=== PATIENT | female | born 1965 | race American Indian/Alaskan Native ===

== ENCOUNTER 2021-12-22 15:49 | Inpatient (IN) | payer MEDICARE ==
[2021-12-22] MEDS ORDERED: MELATONIN 5 MG TAB PO PRN (21:34)
[2021-12-23] MEDS: traZODone 50 MG TAB PO SCH ×2 (00:10→21:55)
[2021-12-23 00:38] LABS: Basophils % (Auto) 0.6 % (0.0-1.8); Eosinophils # (Auto) 0.1 K/mm3 (0.0-0.4); Eosinophils % (Auto) 1.1 % (0.0-4.3); Hematocrit 31.7 % (30.3-42.9); Hemoglobin 10.3 gm/dl (10.1-14.3); Lymphocytes # (Auto) 3.6 K/mm3 (1.2-5.4); Lymphocytes % (Auto) 42.9 % (13.4-35.0); Mean Corpuscular HGB Conc 32 % (30-34); Mean Corpuscular Volume 94 fl (79-97); Monocytes # (Auto) 0.7 K/mm3 (0.0-0.8); Monocytes % (Auto) 8.4 % (0.0-7.3); Platelet Count 286 K/mm3 (140-440); Red Blood Count 3.37 M/mm3 (3.65-5.03)
[2021-12-23 03:14] LABS: Alanine Aminotransferase 16 units/L (7-56); Albumin 3.8 g/dL (3.9-5); BUN/Creatinine Ratio 18; Blood Urea Nitrogen 29 mg/dL (7-17); Calcium 9.4 mg/dL (8.4-10.2); Chol/HDL Ratio 3.06 %; HDL Cholesterol 63 mg/dL (40-59); Hemolysis Index 0; LDL Cholesterol,Direct 121 mg/dL (50-130)
--- NOTE | 2021-12-23 08:38 | History and Physical Report ---
GP History & Physical - History of Present Illness Date of admission: 12/22/21 Date of Examination: 12/23/21 Reason for Admission: Danger to self, Danger to others, Failure of Outpatient Treatment History of Present Illness: The patient is a 56 year old female with history of schizophrenia and dementia who was admitted to the [facility] unit for stabilization. The patient was seen this morning. She is calm and delusional. The patient states she that she has a snake bite on her right shoulder. Per note, " the patient went to the ED for bizarre behaviors; she went to a convenience store claiming that she had been attacked by states and causing disturbance; patient was recently recently discharged from psychiatric inpatient facility where she was admitted for 3.5 months." The patient denies any current suicidal/homicidal ideation and denies hallucinations. The patient reports that she receives Fluphenazine every 2 weeks, states she last received about a week ago; will confirm. PAST PSYCHIATRIC HISTORY PAST MEDICAL HISTORY: unknown Family Psychiatric History: unknown SOCIAL HISTORY REVIEW OF SYSTEMS MENTAL STATUS EXAMINATION Assessment and Plan (1) Schizophrenia Treatment Plan Patient admitted for inpatient psychiatric evaluation, medication adjustment and close monitoring The patient's behavior, mood, sleep and appetite will be closely monitored. Patient enrolled in individual and group therapeutic sessions and encouraged to attend. Patient provided with a safe and structured environment. Patient's physical health needs will be addressed by the Hospitalist. Hospitalist Consulted Labs including CBC, CMP, Lipid profile and Hemoglobin A1C levels ordered for baseline reference Social Assessment will be completed and the Cold Rolling Machine Setter will work with patient and family to ensure a suitable and safe disposition Medication adjustment will be made as clinically indicated Continue home meds Usual Wellness Confucianism/Preservation: - Start Trazodone 50 mg po QHS & 50 mg po QHS PRN between 10 PM & 2 AM for insomnia - Start Melatonin 5 mg po QHS to promote circadian rhythm The patient agreed on the treatment plan, understood the risk, benefit, alternative treatment, potential consequence of no treatment, and gave informed consent. Estimated days: 7 Post hospital care: primary care provider, psychiatric provider Case staffed with Dr. Blake Medications and Allergies Patient Problems: Current Active Problems Advance care planning (Acute) Hypertension (Acute) Obesity hypoventilation syndrome (Acute) Schizophrenia (Acute) Medications and Allergies Allergies Allergy/AdvReac Type Severity Reaction Status Date / Time codeine Allergy Unknown Unverified 12/22/21 15:51 milk Allergy Unknown Unverified 12/22/21 15:52 Sulfa (Sulfonamide Allergy Unknown Unverified 12/22/21 15:51 Antibiotics) Home Medications Medication Instructions Recorded Confirmed Last Taken Type Divalproex Dr [DepaKOTE DR] 500 mg PO BID 12/23/21 12/23/21 Unknown History Divalproex ER [Depakote ER] 250 mg PO QHS 12/23/21 12/23/21 Unknown History dilTIAZem [Cardizem] 90 mg PO BID 12/23/21 12/23/21 Unknown History fluPHENAZine decanoate 37.5 mg IM Q14D 12/23/21 12/23/21 Unknown History [fluPHENAZine Decanoate] hydrOXYzine pamoate [Hydroxyzine 50 mg PO Q6H PRN 12/23/21 12/23/21 Unknown History Pamoate] risperiDONE [RisperDAL] 1 mg PO BID 12/23/21 12/23/21 Unknown History traZODone [Desyrel] 50 mg PO QHS 12/23/21 12/23/21 Unknown History Active Meds: Active Medications Melatonin (Melatonin 5 Mg Tab) 5 mg PO QHS PRN PRN Reason: Sleep Trazodone HCl (Trazodone 50 Mg Tab) 50 mg PO QHS DEREK Last Admin: 12/23/21 00:10 Dose: Not Given Results - Results Labs/Vitals: Laboratory Last Values WBC 8.4 K/mm3 (4.5-11.0) 12/22/21 23:42 RBC 3.37 M/mm3 (3.65-5.03) L 12/22/21 23:42 Hgb 10.3 gm/dl (10.1-14.3) 12/22/21 23:42 Hct 31.7 % (30.3-42.9) 12/22/21 23:42 MCV 94 fl (79-97) 12/22/21 23:42 MCH 31 pg (28-32) 12/22/21 23:42 MCHC 32 % (30-34) 12/22/21 23:42 RDW 14.0 % (13.2-15.2) 12/22/21 23:42 Plt Count 286 K/mm3 (140-440) 12/22/21 23:42 Lymph % (Auto) 42.9 % (13.4-35.0) H 12/22/21 23:42 [place] % (Auto) 8.4 % (0.0-7.3) H 12/22/21 23:42 Eos % (Auto) 1.1 % (0.0-4.3) 12/22/21 23:42 Baso % (Auto) 0.6 % (0.0-1.8) 12/22/21 23:42 Lymph # (Auto) 3.6 K/mm3 (1.2-5.4) 12/22/21 23:42 [place] # (Auto) 0.7 K/mm3 (0.0-0.8) 12/22/21 23:42 Eos # (Auto) 0.1 K/mm3 (0.0-0.4) 12/22/21 23:42 Baso # (Auto) 0.0 K/mm3 (0.0-0.1) 12/22/21 23:42 Seg Neutrophils % 47.0 % (40.0-70.0) 12/22/21 23:42 Seg Neutrophils # 3.9 K/mm3 (1.8-7.7) 12/22/21 23:42 Sodium 136 mmol/L (137-145) L 12/22/21 23:42 Potassium 4.4 mmol/L (3.6-5.0) 12/22/21 23:42 Chloride 100.7 mmol/L (98-107) 12/22/21 23:42 Carbon Dioxide 21 mmol/L (22-30) L 12/22/21 23:42 Anion Gap 19 mmol/L 12/22/21 23:42 BUN 29 mg/dL (7-17) H 12/22/21 23:42 Creatinine 1.6 mg/dL (0.6-1.2) H 12/22/21 23:42 Estimated GFR 40 ml/min 12/22/21 23:42 BUN/Creatinine Ratio 18 % 12/22/21 23:42 Glucose 147 mg/dL (65-100) H 12/22/21 23:42 Hemoglobin A1c 5.5 % (4-6) 12/22/21 23:42 Calcium 9.4 mg/dL (8.4-10.2) 12/22/21 23:42 Total Bilirubin < 0.20 mg/dL (0.1-1.2) 12/22/21 23:42 AST 23 units/L (5-40) 12/22/21 23:42 ALT 16 units/L (7-56) 12/22/21 23:42 Alkaline Phosphatase 73 units/L (35-129) 12/22/21 23:42 Total Protein 7.1 g/dL (6.3-8.2) 12/22/21 23:42 Albumin 3.8 g/dL (3.9-5) L 12/22/21 23:42 Albumin/Globulin Ratio 1.2 % 12/22/21 23:42 Triglycerides 83 mg/dL (2-149) 12/22/21 23:42 Cholesterol 193 mg/dL (50-199) 12/22/21 23:42 LDL Cholesterol Direct 121 mg/dL (50-130) 12/22/21 23:42 HDL Cholesterol 63 mg/dL (40-59) H 12/22/21 23:42 Cholesterol/HDL Ratio 3.06 % 12/22/21 23:42 TSH 1.280 mlU/mL (0.270-4.200) 12/22/21 23:42 Last Vital Signs Temp 98.3 F 12/22/21 22:00 Pulse 79 12/22/21 22:00 Resp 18 12/22/21 22:00 BP 120/63 12/22/21 22:00 Pulse Ox 98 12/22/21 22:00 Physical Examination - Constitutional Vitals: Vital Signs Temp Pulse Resp BP Pulse Ox 98.3 F 79 18 120/63 98 12/22/21 22:00 12/22/21 22:00 12/22/21 22:00 12/22/21 22:00 12/22/21 22:00 Temperature -Last 24 Hours Temperature 98.3 F Mental Status Exam - Vital signs Last Vital Signs Temp 98.3 F 12/22/21 22:00 Pulse 79 12/22/21 22:00 Resp 18 12/22/21 22:00 BP 120/63 12/22/21 22:00 Pulse Ox 98 12/22/21 22:00 Physician Certification - Certification Statement Physician Certification Statement: This is an acknowledgement statement that LUKAS REGALADO is a 56 year old F who requires inpatient psychiatric admission for treatment which could reasonably be expected to improve the patient's condition for Estimated period of time patient will need to remain in the hospital: [ ] Plan for post-hospital care: [ ]
[2021-12-23] MEDS: risperiDONE 1 MG TAB PO SCH ×2 (10:09→21:55)
[2021-12-23] MEDS: DIVALPROEX DR 500 MG TAB PO SCH ×2 (10:09→21:54)
--- NOTE | 2021-12-23 15:25 | Consultation ---
History of Present Illness - Reason for Consult Consult date: 12/22/21 Medical management Requesting physician: LEYDI HINOJOSA - History of Present Illness 56 YO Female with HTN, Obesity, Schizophrenia admitted to [facility] unit for psychiatric stabilization. Consult placed by Dr. Hinojosa for medical management. Patient seen and evaluated in the recreation room. Patient denies fever, chills, chest pain, palpitation, productive cough, skin rash, recent contact, known exposure to COVID-19. No reported nursing events. Patient is at baseline level of cognition and function. Past History Past Medical History: hypertension, other (See HPI) Past Surgical History: No surgical history, Other (Reviewed) Social history: single. denies: smoking, alcohol abuse, prescription drug abuse Family history: diabetes, hypertension Medications and Allergies Allergies Allergy/AdvReac Type Severity Reaction Status Date / Time codeine Allergy Unknown Unverified 12/22/21 15:51 milk Allergy Unknown Unverified 12/22/21 15:52 Sulfa (Sulfonamide Allergy Unknown Unverified 12/22/21 15:51 Antibiotics) Home Medications Medication Instructions Recorded Confirmed Last Taken Type Divalproex Dr [DepaKOTE DR] 500 mg PO BID 12/23/21 12/23/21 Unknown History Divalproex ER [Depakote ER] 250 mg PO QHS 12/23/21 12/23/21 Unknown History dilTIAZem [Cardizem] 90 mg PO BID 12/23/21 12/23/21 Unknown History fluPHENAZine decanoate 37.5 mg IM Q14D 12/23/21 12/23/21 Unknown History [fluPHENAZine Decanoate] hydrOXYzine pamoate [Hydroxyzine 50 mg PO Q6H PRN 12/23/21 12/23/21 Unknown History Pamoate] risperiDONE [RisperDAL] 1 mg PO BID 12/23/21 12/23/21 Unknown History traZODone [Desyrel] 50 mg PO QHS 12/23/21 12/23/21 Unknown History Active Meds: Active Medications Diltiazem HCl (Diltiazem 90 Mg Tab) 90 mg PO BID [facility] Last Admin: 12/23/21 10:09 Dose: 90 mg Divalproex Sodium (Divalproex Dr 500 Mg Tab) 500 mg PO BID [facility] Last Admin: 12/23/21 10:09 Dose: 500 mg Divalproex Sodium (Divalproex Er 250 Mg Tab) 250 mg PO QHS [facility] Hydroxyzine Pamoate (Hydroxyzine Pamoate 50 Mg Cap) 50 mg PO Q6H PRN PRN Reason: Agitation Melatonin (Melatonin 5 Mg Tab) 5 mg PO QHS PRN PRN Reason: Sleep Risperidone (Risperidone 1 Mg Tab) 1 mg PO BID [facility] Last Admin: 12/23/21 10:09 Dose: 1 mg Trazodone HCl (Trazodone 50 Mg Tab) 50 mg PO QHS [facility] Last Admin: 12/23/21 00:10 Dose: Not Given Review of Systems Constitutional: no weight loss, no weight gain, no fever, no chills Ears, nose, mouth and throat: no ear pain, no tinnitis, no decreased hearing, no nose pain, no nasal congestion Breasts: no change in shape, no swelling, no mass Cardiovascular: no chest pain, no palpitations, no edema Respiratory: no cough, no excessive sputum Gastrointestinal: no abdominal pain, no nausea, no vomiting Genitourinary Female: no pelvic pain, no flank pain, no dysuria, no urinary frequency, no stress incontinence Rectal: no pain, no incontinence, no bleeding Musculoskeletal: no neck stiffness, no arm numbness/tingling, no shooting leg pain, no leg numbness/tingling Integumentary: no rash, no redness, no sores Neurological: no head injury, no paralysis, no parathesias, no tingling, no syncope, no tremors Psychiatric: disorientation, confusion, irritability, no anxiety, no memory loss Endocrine: no cold intolerance, no polyphagia, no polydipsia, no excessive sweating Hematologic/Lymphatic: no easy bruising, no easy bleeding Allergic/Immunologic: no wheezing Exam - Constitutional Vitals: Temp Pulse Resp BP Pulse Ox 98.3 F 88 18 112/56 99 12/23/21 09:19 12/23/21 09:19 12/23/21 09:19 12/23/21 09:19 12/23/21 09:19 General appearance: Present: obese - EENT Eyes: Present: PERRL ENT: hearing intact, clear oral mucosa - Neck Neck: Present: supple, normal ROM - Respiratory Respiratory effort: normal Respiratory: bilateral: CTA - Cardiovascular Heart Sounds: Present: S1 & S2. Absent: rub, click - Extremities Extremities: pulses symmetrical, No edema Peripheral Pulses: within normal limits - Abdominal General gastrointestinal: Present: soft, non-tender, non-distended, normal bowel sounds Female genitourinary: Present: normal - Integumentary Integumentary: Present: clear, warm, dry - Musculoskeletal Musculoskeletal: gait normal, strength equal bilaterally - Psychiatric Psychiatric: no intact judgment & insight, cooperative - Neurologic Neurologic: CNII-XII intact, moves all extremities Results - Labs CBC & Chem 7: 12/22/21 23:42 12/22/21 23:42 Labs: Abnormal lab results 12/22/21 12/22/21 Range/Units 23:42 23:42 RBC 3.37 L (3.65-5.03) M/mm3 Lymph % (Auto) 42.9 H (13.4-35.0) % [place] % (Auto) 8.4 H (0.0-7.3) % Sodium 136 L (137-145) mmol/L Carbon Dioxide 21 L (22-30) mmol/L BUN 29 H (7-17) mg/dL Creatinine 1.6 H (0.6-1.2) mg/dL Glucose 147 H (65-100) mg/dL Albumin 3.8 L (3.9-5) g/dL HDL Cholesterol 63 H (40-59) mg/dL Assessment and Plan - Patient Problems (1) Hypertension Current Visit: Yes Status: Acute Qualifiers: Hypertension type: primary hypertension Qualified Code(s): I10 - Essential (primary) hypertension Plan to address problem: Monitor blood pressure every shift, continue medical management. (2) Obesity hypoventilation syndrome Current Visit: Yes Status: Acute Plan to address problem: Balanced diet, increase physical activity discharge, outpatient pulmonary follow-up for sleep study. (3) Schizophrenia Current Visit: Yes Status: Acute Plan to address problem: Continue medical management (4) Advance care planning Current Visit: Yes Status: Acute Plan to address problem: Disease education conducted, care plan discussed, diagnoses discussed, prognosis discussed, patient is full code, +30 minutes.
--- NOTE | 2021-12-23 20:04 | Progress Note ---
Assessment and Plan - Patient Problems (1) Hypertension Current Visit: Yes Status: Acute Qualifiers: Hypertension type: primary hypertension Qualified Code(s): I10 - Essential (primary) hypertension Plan to address problem: Monitor blood pressure every shift, continue medical management. (2) Obesity hypoventilation syndrome Current Visit: Yes Status: Acute Plan to address problem: Balanced diet, increase physical activity discharge, outpatient pulmonary follow-up for sleep study. (3) Schizophrenia Current Visit: Yes Status: Acute Plan to address problem: Continue medical management (4) Advance care planning Current Visit: Yes Status: Acute Plan to address problem: Disease education conducted, care plan discussed, diagnoses discussed, prognosis discussed, patient is full code, +30 minutes. History Interval history: 56 YO Female with HTN, Obesity, Schizophrenia admitted to [facility] unit for psychiatric stabilization. Consult placed by Dr. Padilla for medical management. Patient seen and evaluated in the recreation room. No reported nursing events. Patient is at baseline level of cognition and function. Patient denies pain. Hospitalist Physical - Constitutional Vitals: Temp Pulse Resp BP Pulse Ox 98.3 F 88 18 112/56 99 12/23/21 09:19 12/23/21 09:19 12/23/21 09:19 12/23/21 09:19 12/23/21 09:19 General appearance: Present: obese - EENT Eyes: Present: PERRL ENT: hearing intact - Neck Neck: Present: supple - Respiratory Respiratory effort: normal Respiratory: bilateral: CTA - Cardiovascular Rhythm: regular Heart Sounds: Present: S1 & S2 - Extremities Extremities: no ischemia Peripheral Pulses: within normal limits - Abdominal General gastrointestinal: soft, non-tender, non-distended - Integumentary Integumentary: Present: clear, dry - Psychiatric Psychiatric: cooperative - Neurologic Neurologic: CNII-XII intact Results - Labs CBC & Chem 7: 12/22/21 23:42 12/22/21 23:42 Labs: Laboratory Last Values WBC 8.4 K/mm3 (4.5-11.0) 12/22/21 23:42 RBC 3.37 M/mm3 (3.65-5.03) L 12/22/21 23:42 Hgb 10.3 gm/dl (10.1-14.3) 12/22/21 23:42 Hct 31.7 % (30.3-42.9) 12/22/21 23:42 MCV 94 fl (79-97) 12/22/21 23:42 MCH 31 pg (28-32) 12/22/21 23:42 MCHC 32 % (30-34) 12/22/21 23:42 RDW 14.0 % (13.2-15.2) 12/22/21 23:42 Plt Count 286 K/mm3 (140-440) 12/22/21 23:42 Lymph % (Auto) 42.9 % (13.4-35.0) H 12/22/21 23:42 [place] % (Auto) 8.4 % (0.0-7.3) H 12/22/21 23:42 Eos % (Auto) 1.1 % (0.0-4.3) 12/22/21 23:42 Baso % (Auto) 0.6 % (0.0-1.8) 12/22/21 23:42 Lymph # (Auto) 3.6 K/mm3 (1.2-5.4) 12/22/21 23:42 [place] # (Auto) 0.7 K/mm3 (0.0-0.8) 12/22/21 23:42 Eos # (Auto) 0.1 K/mm3 (0.0-0.4) 12/22/21 23:42 Baso # (Auto) 0.0 K/mm3 (0.0-0.1) 12/22/21 23:42 Seg Neutrophils % 47.0 % (40.0-70.0) 12/22/21 23:42 Seg Neutrophils # 3.9 K/mm3 (1.8-7.7) 12/22/21 23:42 Sodium 136 mmol/L (137-145) L 12/22/21 23:42 Potassium 4.4 mmol/L (3.6-5.0) 12/22/21 23:42 Chloride 100.7 mmol/L (98-107) 12/22/21 23:42 Carbon Dioxide 21 mmol/L (22-30) L 12/22/21 23:42 Anion Gap 19 mmol/L 12/22/21 23:42 BUN 29 mg/dL (7-17) H 12/22/21 23:42 Creatinine 1.6 mg/dL (0.6-1.2) H 12/22/21 23:42 Estimated GFR 40 ml/min 12/22/21 23:42 BUN/Creatinine Ratio 18 % 12/22/21 23:42 Glucose 147 mg/dL (65-100) H 12/22/21 23:42 Hemoglobin A1c 5.5 % (4-6) 12/22/21 23:42 Calcium 9.4 mg/dL (8.4-10.2) 12/22/21 23:42 Total Bilirubin < 0.20 mg/dL (0.1-1.2) 12/22/21 23:42 AST 23 units/L (5-40) 12/22/21 23:42 ALT 16 units/L (7-56) 12/22/21 23:42 Alkaline Phosphatase 73 units/L (35-129) 12/22/21 23:42 Total Protein 7.1 g/dL (6.3-8.2) 12/22/21 23:42 Albumin 3.8 g/dL (3.9-5) L 12/22/21 23:42 Albumin/Globulin Ratio 1.2 % 12/22/21 23:42 Triglycerides 83 mg/dL (2-149) 12/22/21 23:42 Cholesterol 193 mg/dL (50-199) 12/22/21 23:42 LDL Cholesterol Direct 121 mg/dL (50-130) 12/22/21 23:42 HDL Cholesterol 63 mg/dL (40-59) H 12/22/21 23:42 Cholesterol/HDL Ratio 3.06 % 12/22/21 23:42 TSH 1.280 mlU/mL (0.270-4.200) 12/22/21 23:42 Leon/IV: Voiding Method Toilet Active Medications - Current Medications Current Medications: Generic Name Dose Route Start Last Admin Trade Name Freq PRN Reason Stop Dose Admin Diltiazem HCl 90 mg 12/23/21 10:00 12/23/21 10:09 Diltiazem 90 Mg Tab PO 90 mg BID DEREK Administration Divalproex Sodium 500 mg 12/23/21 10:00 12/23/21 10:[address] 500 Mg Tab PO 500 mg BID DEREK Administration Divalproex Sodium 250 mg 12/23/21 22:00 Divalproex Er 250 Mg Tab PO QHS [facility]EREK Hydroxyzine Pamoate 50 mg 12/23/21 08:54 Hydroxyzine Pamoate 50 Mg Cap PO Q6H PRN Agitation Melatonin 5 mg 12/22/21 21:34 Melatonin 5 Mg Tab PO QHS PRN Sleep Risperidone 1 mg 12/23/21 10:00 12/23/21 10:09 Risperidone 1 Mg Tab PO 1 mg BID DEREK Administration Trazodone HCl 50 mg 12/22/21 22:00 12/23/21 00:10 Trazodone 50 Mg Tab PO Not Given QHS DEREK
[2021-12-23] MEDS: DIVALPROEX ER 250 MG TAB PO SCH (21:54)
[2021-12-23] MEDS ORDERED: traZODone 50 MG TAB PO SCH (22:00)
--- NOTE | 2021-12-24 08:59 | Progress Note ---
Subjective Date of service: 12/24/21 Subjective Comment: 12/24/21: The patient was seen this morning. She continues to present with delusions and complaining about the snake bite on her shoulder. she reports sleep and appetite as good. She denies any current suicidal/homicidal ideation and denies hallucinations. PAST PSYCHIATRIC HISTORY PAST MEDICAL HISTORY: unknown Family Psychiatric History: unknown SOCIAL HISTORY REVIEW OF SYSTEMS MENTAL STATUS EXAMINATION Assessment and Plan (1) Schizophrenia Treatment Plan Patient admitted for inpatient psychiatric evaluation, medication adjustment and close monitoring The patient's behavior, mood, sleep and appetite will be closely monitored. Patient enrolled in individual and group therapeutic sessions and encouraged to attend. Patient provided with a safe and structured environment. Patient's physical health needs will be addressed by the Hospitalist. Hospitalist Consulted Labs including CBC, CMP, Lipid profile and Hemoglobin A1C levels ordered for baseline reference Social Assessment will be completed and the Nickel Plant Operator will work with patient and family to ensure a suitable and safe disposition Medication adjustment will be made as clinically indicated Continue home meds Usual Wellness Roman Catholic/Preservation: - Start Trazodone 50 mg po QHS & 50 mg po QHS PRN between 10 PM & 2 AM for insomnia - Start Melatonin 5 mg po QHS to promote circadian rhythm The patient agreed on the treatment plan, understood the risk, benefit, alternative treatment, potential consequence of no treatment, and gave informed consent. Estimated days: 6 Post hospital care: primary care provider, psychiatric provider Case staffed with Dr. Blake Medications and Allergies Medications and Allergies Allergies Allergy/AdvReac Type Severity Reaction Status Date / Time codeine Allergy Unknown Unverified 12/22/21 15:51 milk Allergy Unknown Unverified 12/22/21 15:52 Sulfa (Sulfonamide Allergy Unknown Unverified 12/22/21 15:51 Antibiotics) Home Medications Medication Instructions Recorded Confirmed Last Taken Type Divalproex Dr [DepaKOTE DR] 500 mg PO BID 12/23/21 12/23/21 Unknown History Divalproex ER [Depakote ER] 250 mg PO QHS 12/23/21 12/23/21 Unknown History dilTIAZem [Cardizem] 90 mg PO BID 12/23/21 12/23/21 Unknown History fluPHENAZine decanoate 37.5 mg IM Q14D 12/23/21 12/23/21 Unknown History [fluPHENAZine Decanoate] hydrOXYzine pamoate [Hydroxyzine 50 mg PO Q6H PRN 12/23/21 12/23/21 Unknown History Pamoate] risperiDONE [RisperDAL] 1 mg PO BID 12/23/21 12/23/21 Unknown History traZODone [Desyrel] 50 mg PO QHS 12/23/21 12/23/21 Unknown History Active Meds: Active Medications Diltiazem HCl (Diltiazem 90 Mg Tab) 90 mg PO BID [facility] Last Admin: 12/23/21 21:54 Dose: 90 mg Divalproex Sodium (Divalproex Dr 500 Mg Tab) 500 mg PO BID [facility] Last Admin: 12/23/21 21:54 Dose: 500 mg Divalproex Sodium (Divalproex Er 250 Mg Tab) 250 mg PO QHS [facility] Last Admin: 12/23/21 21:54 Dose: 250 mg Hydroxyzine Pamoate (Hydroxyzine Pamoate 50 Mg Cap) 50 mg PO Q6H PRN PRN Reason: Agitation Melatonin (Melatonin 5 Mg Tab) 5 mg PO QHS PRN PRN Reason: Sleep Risperidone (Risperidone 1 Mg Tab) 1 mg PO BID [facility] Last Admin: 12/23/21 21:55 Dose: 1 mg Trazodone HCl (Trazodone 50 Mg Tab) 50 mg PO QHS [facility] Last Admin: 12/23/21 21:55 Dose: 50 mg Results - Results Labs/Vitals: Laboratory Last Values WBC 8.4 K/mm3 (4.5-11.0) 12/22/21 23:42 RBC 3.37 M/mm3 (3.65-5.03) L 12/22/21 23:42 Hgb 10.3 gm/dl (10.1-14.3) 12/22/21 23:42 Hct 31.7 % (30.3-42.9) 12/22/21 23:42 MCV 94 fl (79-97) 12/22/21 23:42 MCH 31 pg (28-32) 12/22/21 23:42 MCHC 32 % (30-34) 12/22/21 23:42 RDW 14.0 % (13.2-15.2) 12/22/21 23:42 Plt Count 286 K/mm3 (140-440) 12/22/21 23:42 Lymph % (Auto) 42.9 % (13.4-35.0) H 12/22/21 23:42 [place] % (Auto) 8.4 % (0.0-7.3) H 12/22/21 23:42 Eos % (Auto) 1.1 % (0.0-4.3) 12/22/21 23:42 Baso % (Auto) 0.6 % (0.0-1.8) 12/22/21 23:42 Lymph # (Auto) 3.6 K/mm3 (1.2-5.4) 12/22/21 23:42 [place] # (Auto) 0.7 K/mm3 (0.0-0.8) 12/22/21 23:42 Eos # (Auto) 0.1 K/mm3 (0.0-0.4) 12/22/21 23:42 Baso # (Auto) 0.0 K/mm3 (0.0-0.1) 12/22/21 23:42 Seg Neutrophils % 47.0 % (40.0-70.0) 12/22/21 23:42 Seg Neutrophils # 3.9 K/mm3 (1.8-7.7) 12/22/21 23:42 Sodium 136 mmol/L (137-145) L 12/22/21 23:42 Potassium 4.4 mmol/L (3.6-5.0) 12/22/21 23:42 Chloride 100.7 mmol/L (98-107) 12/22/21 23:42 Carbon Dioxide 21 mmol/L (22-30) L 12/22/21 23:42 Anion Gap 19 mmol/L 12/22/21 23:42 BUN 29 mg/dL (7-17) H 12/22/21 23:42 Creatinine 1.6 mg/dL (0.6-1.2) H 12/22/21 23:42 Estimated GFR 40 ml/min 12/22/21 23:42 BUN/Creatinine Ratio 18 % 12/22/21 23:42 Glucose 147 mg/dL (65-100) H 12/22/21 23:42 Hemoglobin A1c 5.5 % (4-6) 12/22/21 23:42 Calcium 9.4 mg/dL (8.4-10.2) 12/22/21 23:42 Total Bilirubin < 0.20 mg/dL (0.1-1.2) 12/22/21 23:42 AST 23 units/L (5-40) 12/22/21 23:42 ALT 16 units/L (7-56) 12/22/21 23:42 Alkaline Phosphatase 73 units/L (35-129) 12/22/21 23:42 Total Protein 7.1 g/dL (6.3-8.2) 12/22/21 23:42 Albumin 3.8 g/dL (3.9-5) L 12/22/21 23:42 Albumin/Globulin Ratio 1.2 % 12/22/21 23:42 Triglycerides 83 mg/dL (2-149) 12/22/21 23:42 Cholesterol 193 mg/dL (50-199) 12/22/21 23:42 LDL Cholesterol Direct 121 mg/dL (50-130) 12/22/21 23:42 HDL Cholesterol 63 mg/dL (40-59) H 12/22/21 23:42 Cholesterol/HDL Ratio 3.06 % 12/22/21 23:42 TSH 1.280 mlU/mL (0.270-4.200) 12/22/21 23:42 Last Vital Signs Temp 97.5 F L 12/23/21 19:30 Pulse 80 12/23/21 21:54 Resp 17 12/23/21 19:30 BP 110/67 12/23/21 21:54 Pulse Ox 100 12/23/21 19:30
[2021-12-24] MEDS: DIVALPROEX DR 500 MG TAB PO SCH (09:15)
[2021-12-24] MEDS: risperiDONE 1 MG TAB PO SCH ×2 (09:16→21:26)
--- NOTE | 2021-12-24 20:44 | Progress Note ---
Assessment and Plan - Patient Problems (1) Hypertension Current Visit: Yes Status: Acute Qualifiers: Hypertension type: primary hypertension Qualified Code(s): I10 - Essential (primary) hypertension Plan to address problem: Monitor blood pressure every shift, continue medical management. (2) Obesity hypoventilation syndrome Current Visit: Yes Status: Acute Plan to address problem: Balanced diet, increase physical activity discharge, outpatient pulmonary follow-up for sleep study. (3) Schizophrenia Current Visit: Yes Status: Acute Plan to address problem: Continue medical management (4) Advance care planning Current Visit: Yes Status: Acute Plan to address problem: Disease education conducted, care plan discussed, diagnoses discussed, prognosis discussed, patient is full code, +30 minutes. History Interval history: 56 YO Female with HTN, Obesity, Schizophrenia admitted to [facility] for psychiatric stabilization. Consult placed by Dr. Padilla for medical management. Patient seen and evaluated in the recreation room. No reported nursing events. Patient is at baseline level of cognition and function. Patient denies pain. Hospitalist Physical - Constitutional Vitals: Temp Pulse Resp BP Pulse Ox 98.7 F 75 16 136/59 100 12/24/21 20:04 12/24/21 20:04 12/24/21 20:04 12/24/21 20:04 12/24/21 20:04 General appearance: Present: obese - EENT Eyes: Present: PERRL ENT: hearing intact - Neck Neck: Present: supple - Respiratory Respiratory effort: normal Respiratory: bilateral: CTA - Cardiovascular Rhythm: regular Heart Sounds: Present: S1 & S2 - Extremities Extremities: no ischemia Peripheral Pulses: within normal limits - Abdominal General gastrointestinal: soft, non-tender, non-distended - Integumentary Integumentary: Present: clear, dry - Psychiatric Psychiatric: cooperative - Neurologic Neurologic: CNII-XII intact Results - Labs CBC & Chem 7: 12/22/21 23:42 12/22/21 23:42 Labs: Laboratory Last Values WBC 8.4 K/mm3 (4.5-11.0) 12/22/21 23:42 RBC 3.37 M/mm3 (3.65-5.03) L 12/22/21 23:42 Hgb 10.3 gm/dl (10.1-14.3) 12/22/21 23:42 Hct 31.7 % (30.3-42.9) 12/22/21 23:42 MCV 94 fl (79-97) 12/22/21 23:42 MCH 31 pg (28-32) 12/22/21 23:42 MCHC 32 % (30-34) 12/22/21 23:42 RDW 14.0 % (13.2-15.2) 12/22/21 23:42 Plt Count 286 K/mm3 (140-440) 12/22/21 23:42 Lymph % (Auto) 42.9 % (13.4-35.0) H 12/22/21 23:42 [place] % (Auto) 8.4 % (0.0-7.3) H 12/22/21 23:42 Eos % (Auto) 1.1 % (0.0-4.3) 12/22/21 23:42 Baso % (Auto) 0.6 % (0.0-1.8) 12/22/21 23:42 Lymph # (Auto) 3.6 K/mm3 (1.2-5.4) 12/22/21 23:42 [place] # (Auto) 0.7 K/mm3 (0.0-0.8) 12/22/21 23:42 Eos # (Auto) 0.1 K/mm3 (0.0-0.4) 12/22/21 23:42 Baso # (Auto) 0.0 K/mm3 (0.0-0.1) 12/22/21 23:42 Seg Neutrophils % 47.0 % (40.0-70.0) 12/22/21 23:42 Seg Neutrophils # 3.9 K/mm3 (1.8-7.7) 12/22/21 23:42 Sodium 136 mmol/L (137-145) L 12/22/21 23:42 Potassium 4.4 mmol/L (3.6-5.0) 12/22/21 23:42 Chloride 100.7 mmol/L (98-107) 12/22/21 23:42 Carbon Dioxide 21 mmol/L (22-30) L 12/22/21 23:42 Anion Gap 19 mmol/L 12/22/21 23:42 BUN 29 mg/dL (7-17) H 12/22/21 23:42 Creatinine 1.6 mg/dL (0.6-1.2) H 12/22/21 23:42 Estimated GFR 40 ml/min 12/22/21 23:42 BUN/Creatinine Ratio 18 % 12/22/21 23:42 Glucose 147 mg/dL (65-100) H 12/22/21 23:42 Hemoglobin A1c 5.5 % (4-6) 12/22/21 23:42 Calcium 9.4 mg/dL (8.4-10.2) 12/22/21 23:42 Total Bilirubin < 0.20 mg/dL (0.1-1.2) 12/22/21 23:42 AST 23 units/L (5-40) 12/22/21 23:42 ALT 16 units/L (7-56) 12/22/21 23:42 Alkaline Phosphatase 73 units/L (35-129) 12/22/21 23:42 Total Protein 7.1 g/dL (6.3-8.2) 12/22/21 23:42 Albumin 3.8 g/dL (3.9-5) L 12/22/21 23:42 Albumin/Globulin Ratio 1.2 % 12/22/21 23:42 Triglycerides 83 mg/dL (2-149) 12/22/21 23:42 Cholesterol 193 mg/dL (50-199) 12/22/21 23:42 LDL Cholesterol Direct 121 mg/dL (50-130) 12/22/21 23:42 HDL Cholesterol 63 mg/dL (40-59) H 12/22/21 23:42 Cholesterol/HDL Ratio 3.06 % 12/22/21 23:42 TSH 1.280 mlU/mL (0.270-4.200) 12/22/21 23:42 Leon/IV: Voiding Method Toilet Active Medications - Current Medications Current Medications: Generic Name Dose Route Start Last Admin Trade Name Freq PRN Reason Stop Dose Admin Diltiazem HCl 90 mg 12/23/21 10:00 12/24/21 09:16 Diltiazem 90 Mg Tab PO Not Given BID DEREK Divalproex Sodium 500 mg 12/23/21 10:00 12/24/21 09:[address] 500 Mg Tab PO 500 mg BID DEREK Administration Divalproex Sodium 250 mg 12/23/21 22:00 12/23/21 21:54 Divalproex Er 250 Mg Tab PO 250 mg QHS DEREK Administration Hydroxyzine Pamoate 50 mg 12/23/21 08:54 Hydroxyzine Pamoate 50 Mg Cap PO Q6H PRN Agitation Melatonin 5 mg 12/22/21 21:34 Melatonin 5 Mg Tab PO QHS PRN Sleep Risperidone 1 mg 12/23/21 10:00 12/24/21 09:16 Risperidone 1 Mg Tab PO 1 mg BID DEREK Administration Trazodone HCl 50 mg 12/22/21 22:00 12/23/21 21:55 Trazodone 50 Mg Tab PO 50 mg QHS DEREK Administration
[2021-12-24] MEDS: traZODone 50 MG TAB PO SCH (21:25)
[2021-12-24] MEDS: DIVALPROEX ER 250 MG TAB PO SCH (21:25)
--- NOTE | 2021-12-25 09:12 | Progress Note ---
Subjective Date of service: 12/25/21 Subjective Comment: 12/25/21: The patient was seen this morning tending to her morning hygiene. She continues to present with some paranoia " my brother said I was bit by a snake he saw it in his camera. " The patient states sleep and appetite as good. She denies any current suicidal/homicidal ideation and denies hallucinations. 12/24/21: The patient was seen this morning. She continues to present with delusions and complaining about the snake bite on her shoulder. she reports sleep and appetite as good. She denies any current suicidal/homicidal ideation and denies hallucinations. PAST PSYCHIATRIC HISTORY PAST MEDICAL HISTORY: unknown Family Psychiatric History: unknown SOCIAL HISTORY REVIEW OF SYSTEMS MENTAL STATUS EXAMINATION Assessment and Plan (1) Schizophrenia Treatment Plan Patient admitted for inpatient psychiatric evaluation, medication adjustment and close monitoring The patient's behavior, mood, sleep and appetite will be closely monitored. Patient enrolled in individual and group therapeutic sessions and encouraged to attend. Patient provided with a safe and structured environment. Patient's physical health needs will be addressed by the Hospitalist. Hospitalist Consulted Labs including CBC, CMP, Lipid profile and Hemoglobin A1C levels ordered for baseline reference Social Assessment will be completed and the Lapidary Apprentice will work with patient and family to ensure a suitable and safe disposition Medication adjustment will be made as clinically indicated Continue home meds Usual Wellness [facility]ist/Preservation: - Start Trazodone 50 mg po QHS & 50 mg po QHS PRN between 10 PM & 2 AM for insomnia - Start Melatonin 5 mg po QHS to promote circadian rhythm The patient agreed on the treatment plan, understood the risk, benefit, alternative treatment, potential consequence of no treatment, and gave informed consent. Estimated days: 5 Post hospital care: primary care provider, psychiatric provider Case staffed with Dr. Blake Medications and Allergies Medications and Allergies Allergies Allergy/AdvReac Type Severity Reaction Status Date / Time codeine Allergy Unknown Unverified 12/22/21 15:51 Sulfa (Sulfonamide Allergy Unknown Unverified 12/22/21 15:51 Antibiotics) Home Medications Medication Instructions Recorded Confirmed Last Taken Type Divalproex Dr [DepaKOTE DR] 500 mg PO BID 12/23/21 12/23/21 Unknown History Divalproex ER [Depakote ER] 250 mg PO QHS 12/23/21 12/23/21 Unknown History dilTIAZem [Cardizem] 90 mg PO BID 12/23/21 12/23/21 Unknown History fluPHENAZine decanoate 37.5 mg IM Q14D 12/23/21 12/23/21 Unknown History [fluPHENAZine Decanoate] hydrOXYzine pamoate [Hydroxyzine 50 mg PO Q6H PRN 12/23/21 12/23/21 Unknown History Pamoate] risperiDONE [RisperDAL] 1 mg PO BID 12/23/21 12/23/21 Unknown History traZODone [Desyrel] 50 mg PO QHS 12/23/21 12/23/21 Unknown History Active Meds: Active Medications Diltiazem HCl (Diltiazem 90 Mg Tab) 90 mg PO BID [facility] Last Admin: 12/24/21 21:24 Dose: 90 mg Divalproex Sodium (Divalproex Er 250 Mg Tab) 250 mg PO QHS [facility] Last Admin: 12/24/21 21:25 Dose: 250 mg Divalproex Sodium (Divalproex Dr 500 Mg Tab) 500 mg PO BID@0800,1700 [facility] Hydroxyzine Pamoate (Hydroxyzine Pamoate 50 Mg Cap) 50 mg PO Q6H PRN PRN Reason: Agitation Melatonin (Melatonin 5 Mg Tab) 5 mg PO QHS PRN PRN Reason: Sleep Risperidone (Risperidone 1 Mg Tab) 1 mg PO BID [facility] Last Admin: 12/24/21 21:26 Dose: 1 mg Trazodone HCl (Trazodone 50 Mg Tab) 50 mg PO QHS [facility] Last Admin: 12/24/21 21:25 Dose: 50 mg Results - Results Labs/Vitals: Laboratory Last Values WBC 8.4 K/mm3 (4.5-11.0) 12/22/21 23:42 RBC 3.37 M/mm3 (3.65-5.03) L 12/22/21 23:42 Hgb 10.3 gm/dl (10.1-14.3) 12/22/21 23:42 Hct 31.7 % (30.3-42.9) 12/22/21 23:42 MCV 94 fl (79-97) 12/22/21 23:42 MCH 31 pg (28-32) 12/22/21 23:42 MCHC 32 % (30-34) 12/22/21 23:42 RDW 14.0 % (13.2-15.2) 12/22/21 23:42 Plt Count 286 K/mm3 (140-440) 12/22/21 23:42 Lymph % (Auto) 42.9 % (13.4-35.0) H 12/22/21 23:42 [place] % (Auto) 8.4 % (0.0-7.3) H 12/22/21 23:42 Eos % (Auto) 1.1 % (0.0-4.3) 12/22/21 23:42 Baso % (Auto) 0.6 % (0.0-1.8) 12/22/21 23:42 Lymph # (Auto) 3.6 K/mm3 (1.2-5.4) 12/22/21 23:42 [place] # (Auto) 0.7 K/mm3 (0.0-0.8) 12/22/21 23:42 Eos # (Auto) 0.1 K/mm3 (0.0-0.4) 12/22/21 23:42 Baso # (Auto) 0.0 K/mm3 (0.0-0.1) 12/22/21 23:42 Seg Neutrophils % 47.0 % (40.0-70.0) 12/22/21 23:42 Seg Neutrophils # 3.9 K/mm3 (1.8-7.7) 12/22/21 23:42 Sodium 136 mmol/L (137-145) L 12/22/21 23:42 Potassium 4.4 mmol/L (3.6-5.0) 12/22/21 23:42 Chloride 100.7 mmol/L (98-107) 12/22/21 23:42 Carbon Dioxide 21 mmol/L (22-30) L 12/22/21 23:42 Anion Gap 19 mmol/L 12/22/21 23:42 BUN 29 mg/dL (7-17) H 12/22/21 23:42 Creatinine 1.6 mg/dL (0.6-1.2) H 12/22/21 23:42 Estimated GFR 40 ml/min 12/22/21 23:42 BUN/Creatinine Ratio 18 % 12/22/21 23:42 Glucose 147 mg/dL (65-100) H 12/22/21 23:42 Hemoglobin A1c 5.5 % (4-6) 12/22/21 23:42 Calcium 9.4 mg/dL (8.4-10.2) 12/22/21 23:42 Total Bilirubin < 0.20 mg/dL (0.1-1.2) 12/22/21 23:42 AST 23 units/L (5-40) 12/22/21 23:42 ALT 16 units/L (7-56) 12/22/21 23:42 Alkaline Phosphatase 73 units/L (35-129) 12/22/21 23:42 Total Protein 7.1 g/dL (6.3-8.2) 12/22/21 23:42 Albumin 3.8 g/dL (3.9-5) L 12/22/21 23:42 Albumin/Globulin Ratio 1.2 % 12/22/21 23:42 Triglycerides 83 mg/dL (2-149) 12/22/21 23:42 Cholesterol 193 mg/dL (50-199) 12/22/21 23:42 LDL Cholesterol Direct 121 mg/dL (50-130) 12/22/21 23:42 HDL Cholesterol 63 mg/dL (40-59) H 12/22/21 23:42 Cholesterol/HDL Ratio 3.06 % 12/22/21 23:42 TSH 1.280 mlU/mL (0.270-4.200) 12/22/21 23:42 Last Vital Signs Temp 98.7 F 12/24/21 20:04 Pulse 76 12/24/21 21:24 Resp 16 12/24/21 20:04 BP 136/59 12/24/21 21:24 Pulse Ox 100 12/24/21 20:04
[2021-12-25] MEDS: DIVALPROEX DR 500 MG TAB PO SCH ×2 (10:07→17:24)
[2021-12-25] MEDS: risperiDONE 1 MG TAB PO SCH ×2 (10:10→21:17)
--- NOTE | 2021-12-25 15:04 | Progress Note ---
Assessment and Plan - Patient Problems (1) Hypertension Current Visit: Yes Status: Acute Qualifiers: Hypertension type: primary hypertension Qualified Code(s): I10 - Essential (primary) hypertension Plan to address problem: Monitor blood pressure every shift, continue medical management. (2) Obesity hypoventilation syndrome Current Visit: Yes Status: Acute Plan to address problem: Balanced diet, increase physical activity discharge, outpatient pulmonary follow-up for sleep study. (3) Schizophrenia Current Visit: Yes Status: Acute Plan to address problem: Continue medical management (4) Advance care planning Current Visit: Yes Status: Acute Plan to address problem: Disease education conducted, care plan discussed, diagnoses discussed, prognosis discussed, patient is full code, +30 minutes. History Interval history: 56 YO Female with HTN, Obesity, Schizophrenia admitted to [facility] unit for psychiatric stabilization. Consult placed by Dr. Padilla for medical management. Patient seen and evaluated in the recreation room. No reported nursing events. Patient is at baseline level of cognition and function. Patient denies pain. Hospitalist Physical - Constitutional Vitals: Temp Pulse Resp BP Pulse Ox 97.6 F 69 16 129/82 100 12/25/21 07:35 12/25/21 10:11 12/25/21 07:35 12/25/21 10:11 12/25/21 07:35 General appearance: Present: obese - EENT Eyes: Present: PERRL, EOM intact ENT: hearing intact - Neck Neck: Present: supple - Respiratory Respiratory effort: normal Respiratory: bilateral: CTA - Cardiovascular Rhythm: regular Heart Sounds: Present: S1 & S2 - Extremities Extremities: no ischemia Peripheral Pulses: within normal limits - Abdominal General gastrointestinal: soft, non-tender, non-distended - Integumentary Integumentary: Present: clear, dry - Psychiatric Psychiatric: cooperative - Neurologic Neurologic: CNII-XII intact, no focal deficits, moves all extremities Results - Labs CBC & Chem 7: 12/22/21 23:42 12/22/21 23:42 Labs: Laboratory Last Values WBC 8.4 K/mm3 (4.5-11.0) 12/22/21 23:42 RBC 3.37 M/mm3 (3.65-5.03) L 12/22/21 23:42 Hgb 10.3 gm/dl (10.1-14.3) 12/22/21 23:42 Hct 31.7 % (30.3-42.9) 12/22/21 23:42 MCV 94 fl (79-97) 12/22/21 23:42 MCH 31 pg (28-32) 12/22/21 23:42 MCHC 32 % (30-34) 12/22/21 23:42 RDW 14.0 % (13.2-15.2) 12/22/21 23:42 Plt Count 286 K/mm3 (140-440) 12/22/21 23:42 Lymph % (Auto) 42.9 % (13.4-35.0) H 12/22/21 23:42 [place] % (Auto) 8.4 % (0.0-7.3) H 12/22/21 23:42 Eos % (Auto) 1.1 % (0.0-4.3) 12/22/21 23:42 Baso % (Auto) 0.6 % (0.0-1.8) 12/22/21 23:42 Lymph # (Auto) 3.6 K/mm3 (1.2-5.4) 12/22/21 23:42 [place] # (Auto) 0.7 K/mm3 (0.0-0.8) 12/22/21 23:42 Eos # (Auto) 0.1 K/mm3 (0.0-0.4) 12/22/21 23:42 Baso # (Auto) 0.0 K/mm3 (0.0-0.1) 12/22/21 23:42 Seg Neutrophils % 47.0 % (40.0-70.0) 12/22/21 23:42 Seg Neutrophils # 3.9 K/mm3 (1.8-7.7) 12/22/21 23:42 Sodium 136 mmol/L (137-145) L 12/22/21 23:42 Potassium 4.4 mmol/L (3.6-5.0) 12/22/21 23:42 Chloride 100.7 mmol/L (98-107) 12/22/21 23:42 Carbon Dioxide 21 mmol/L (22-30) L 12/22/21 23:42 Anion Gap 19 mmol/L 12/22/21 23:42 BUN 29 mg/dL (7-17) H 12/22/21 23:42 Creatinine 1.6 mg/dL (0.6-1.2) H 12/22/21 23:42 Estimated GFR 40 ml/min 12/22/21 23:42 BUN/Creatinine Ratio 18 % 12/22/21 23:42 Glucose 147 mg/dL (65-100) H 12/22/21 23:42 Hemoglobin A1c 5.5 % (4-6) 12/22/21 23:42 Calcium 9.4 mg/dL (8.4-10.2) 12/22/21 23:42 Total Bilirubin < 0.20 mg/dL (0.1-1.2) 12/22/21 23:42 AST 23 units/L (5-40) 12/22/21 23:42 ALT 16 units/L (7-56) 12/22/21 23:42 Alkaline Phosphatase 73 units/L (35-129) 12/22/21 23:42 Total Protein 7.1 g/dL (6.3-8.2) 12/22/21 23:42 Albumin 3.8 g/dL (3.9-5) L 12/22/21 23:42 Albumin/Globulin Ratio 1.2 % 12/22/21 23:42 Triglycerides 83 mg/dL (2-149) 12/22/21 23:42 Cholesterol 193 mg/dL (50-199) 12/22/21 23:42 LDL Cholesterol Direct 121 mg/dL (50-130) 12/22/21 23:42 HDL Cholesterol 63 mg/dL (40-59) H 12/22/21 23:42 Cholesterol/HDL Ratio 3.06 % 12/22/21 23:42 TSH 1.280 mlU/mL (0.270-4.200) 12/22/21 23:42 Leon/IV: Voiding Method Toilet Active Medications - Current Medications Current Medications: Generic Name Dose Route Start Last Admin Trade Name Freq PRN Reason Stop Dose Admin Diltiazem HCl 90 mg 12/23/21 10:00 12/25/21 10:11 Diltiazem 90 Mg Tab PO 90 mg BID DEREK Administration Divalproex Sodium 250 mg 12/23/21 22:00 12/24/21 21:25 Divalproex Er 250 Mg Tab PO 250 mg QHS DEREK Administration Divalproex Sodium 500 mg 12/25/21 08:00 12/25/21 10:[address] 500 Mg Tab PO 500 mg BID@0800,1700 DEREK Administration Hydroxyzine Pamoate 50 mg 12/23/21 08:54 Hydroxyzine Pamoate 50 Mg Cap PO Q6H PRN Agitation Melatonin 5 mg 12/22/21 21:34 Melatonin 5 Mg Tab PO QHS PRN Sleep Risperidone 1 mg 12/23/21 10:00 12/25/21 10:10 Risperidone 1 Mg Tab PO 1 mg BID DEREK Administration Trazodone HCl 50 mg 12/22/21 22:00 12/24/21 21:25 Trazodone 50 Mg Tab PO 50 mg QHS DEREK Administration
[2021-12-25] MEDS: traZODone 50 MG TAB PO SCH (21:17)
[2021-12-25] MEDS: DIVALPROEX ER 250 MG TAB PO SCH (21:17)
--- NOTE | 2021-12-26 08:37 | Progress Note ---
Subjective Date of service: 12/26/21 Subjective Comment: 12/26/21: The patient was seen this morning. She reports doing well. She reports not seeing snakes " I honestly don't know what bit me. " he denies any current suicidal/homicidal ideation and denies hallucinations. 12/25/21: The patient was seen this morning tending to her morning hygiene. She continues to present with some paranoia " my brother said I was bit by a snake he saw it in his camera. " The patient states sleep and appetite as good. She denies any current suicidal/homicidal ideation and denies hallucinations. 12/24/21: The patient was seen this morning. She continues to present with delusions and complaining about the snake bite on her shoulder. she reports sleep and appetite as good. She denies any current suicidal/homicidal ideation and denies hallucinations. PAST PSYCHIATRIC HISTORY PAST MEDICAL HISTORY: unknown Family Psychiatric History: unknown SOCIAL HISTORY REVIEW OF SYSTEMS MENTAL STATUS EXAMINATION Assessment and Plan (1) Schizophrenia Treatment Plan Patient admitted for inpatient psychiatric evaluation, medication adjustment and close monitoring The patient's behavior, mood, sleep and appetite will be closely monitored. Patient enrolled in individual and group therapeutic sessions and encouraged to attend. Patient provided with a safe and structured environment. Patient's physical health needs will be addressed by the Hospitalist. Hospitalist Consulted Labs including CBC, CMP, Lipid profile and Hemoglobin A1C levels ordered for baseline reference Social Assessment will be completed and the Emt B will work with patient and family to ensure a suitable and safe disposition Medication adjustment will be made as clinically indicated Continue home meds Usual Wellness [facility]/Preservation: - Start Trazodone 50 mg po QHS & 50 mg po QHS PRN between 10 PM & 2 AM for insomnia - Start Melatonin 5 mg po QHS to promote circadian rhythm The patient agreed on the treatment plan, understood the risk, benefit, alternative treatment, potential consequence of no treatment, and gave informed consent. Estimated days: 4 Post hospital care: primary care provider, psychiatric provider Case staffed with Dr. Blake Medications and Allergies Medications and Allergies Allergies Allergy/AdvReac Type Severity Reaction Status Date / Time codeine Allergy Unknown Unverified 12/22/21 15:51 Sulfa (Sulfonamide Allergy Unknown Unverified 12/22/21 15:51 Antibiotics) Home Medications Medication Instructions Recorded Confirmed Last Taken Type Divalproex [DepaKOTE DR] 500 mg PO BID 12/23/21 12/23/21 Unknown History Divalproex ER [Depakote ER] 250 mg PO QHS 12/23/21 12/23/21 Unknown History dilTIAZem [Cardizem] 90 mg PO BID 12/23/21 12/23/21 Unknown History fluPHENAZine decanoate 37.5 mg IM Q14D 12/23/21 12/23/21 Unknown History [fluPHENAZine Decanoate] hydrOXYzine pamoate [Hydroxyzine 50 mg PO Q6H PRN 12/23/21 12/23/21 Unknown History Pamoate] risperiDONE [RisperDAL] 1 mg PO BID 12/23/21 12/23/21 Unknown History traZODone [Desyrel] 50 mg PO QHS 12/23/21 12/23/21 Unknown History Active Meds: Active Medications Diltiazem HCl (Diltiazem 90 Mg Tab) 90 mg PO BID [facility] Last Admin: 12/25/21 21:16 Dose: 90 mg Divalproex Sodium (Divalproex Er 250 Mg Tab) 250 mg PO QHS [facility] Last Admin: 12/25/21 21:17 Dose: 250 mg Divalproex Sodium (Divalproex Dr 500 Mg Tab) 500 mg PO BID@0800,1700 [facility] Last Admin: 12/25/21 17:24 Dose: 500 mg Hydroxyzine Pamoate (Hydroxyzine Pamoate 50 Mg Cap) 50 mg PO Q6H PRN PRN Reason: Agitation Melatonin (Melatonin 5 Mg Tab) 5 mg PO QHS PRN PRN Reason: Sleep Risperidone (Risperidone 1 Mg Tab) 1 mg PO BID [facility] Last Admin: 12/25/21 21:17 Dose: 1 mg Trazodone HCl (Trazodone 50 Mg Tab) 50 mg PO QHS [facility] Last Admin: 12/25/21 21:17 Dose: 50 mg Results - Results Labs/Vitals: Laboratory Last Values WBC 8.4 K/mm3 (4.5-11.0) 12/22/21 23:42 RBC 3.37 M/mm3 (3.65-5.03) L 12/22/21 23:42 Hgb 10.3 gm/dl (10.1-14.3) 12/22/21 23:42 Hct 31.7 % (30.3-42.9) 12/22/21 23:42 MCV 94 fl (79-97) 12/22/21 23:42 MCH 31 pg (28-32) 12/22/21 23:42 MCHC 32 % (30-34) 12/22/21 23:42 RDW 14.0 % (13.2-15.2) 12/22/21 23:42 Plt Count 286 K/mm3 (140-440) 12/22/21 23:42 Lymph % (Auto) 42.9 % (13.4-35.0) H 12/22/21 23:42 [place] % (Auto) 8.4 % (0.0-7.3) H 12/22/21 23:42 Eos % (Auto) 1.1 % (0.0-4.3) 12/22/21 23:42 Baso % (Auto) 0.6 % (0.0-1.8) 12/22/21 23:42 Lymph # (Auto) 3.6 K/mm3 (1.2-5.4) 12/22/21 23:42 [place] # (Auto) 0.7 K/mm3 (0.0-0.8) 12/22/21 23:42 Eos # (Auto) 0.1 K/mm3 (0.0-0.4) 12/22/21 23:42 Baso # (Auto) 0.0 K/mm3 (0.0-0.1) 12/22/21 23:42 Seg Neutrophils % 47.0 % (40.0-70.0) 12/22/21 23:42 Seg Neutrophils # 3.9 K/mm3 (1.8-7.7) 12/22/21 23:42 Sodium 136 mmol/L (137-145) L 12/22/21 23:42 Potassium 4.4 mmol/L (3.6-5.0) 12/22/21 23:42 Chloride 100.7 mmol/L (98-107) 12/22/21 23:42 Carbon Dioxide 21 mmol/L (22-30) L 12/22/21 23:42 Anion Gap 19 mmol/L 12/22/21 23:42 BUN 29 mg/dL (7-17) H 12/22/21 23:42 Creatinine 1.6 mg/dL (0.6-1.2) H 12/22/21 23:42 Estimated GFR 40 ml/min 12/22/21 23:42 BUN/Creatinine Ratio 18 % 12/22/21 23:42 Glucose 147 mg/dL (65-100) H 12/22/21 23:42 Hemoglobin A1c 5.5 % (4-6) 12/22/21 23:42 Calcium 9.4 mg/dL (8.4-10.2) 12/22/21 23:42 Total Bilirubin < 0.20 mg/dL (0.1-1.2) 12/22/21 23:42 AST 23 units/L (5-40) 12/22/21 23:42 ALT 16 units/L (7-56) 12/22/21 23:42 Alkaline Phosphatase 73 units/L (35-129) 12/22/21 23:42 Total Protein 7.1 g/dL (6.3-8.2) 12/22/21 23:42 Albumin 3.8 g/dL (3.9-5) L 12/22/21 23:42 Albumin/Globulin Ratio 1.2 % 12/22/21 23:42 Triglycerides 83 mg/dL (2-149) 12/22/21 23:42 Cholesterol 193 mg/dL (50-199) 12/22/21 23:42 LDL Cholesterol Direct 121 mg/dL (50-130) 12/22/21 23:42 HDL Cholesterol 63 mg/dL (40-59) H 12/22/21 23:42 Cholesterol/HDL Ratio 3.06 % 12/22/21 23:42 TSH 1.280 mlU/mL (0.270-4.200) 12/22/21 23:42 Last Vital Signs Temp 98.3 F 12/25/21 19:26 Pulse 77 12/25/21 21:16 Resp 16 12/25/21 19:26 BP 124/55 12/25/21 21:16 Pulse Ox 100 12/25/21 19:26
[2021-12-26] MEDS: DIVALPROEX DR 500 MG TAB PO SCH ×2 (09:15→16:31)
[2021-12-26] MEDS: risperiDONE 1 MG TAB PO SCH ×2 (09:15→22:21)
[2021-12-26] MEDS: DIVALPROEX ER 250 MG TAB PO SCH (22:21)
[2021-12-26] MEDS: traZODone 50 MG TAB PO SCH (22:24)
[2021-12-27] MEDS: DIVALPROEX DR 500 MG TAB PO SCH ×3 (07:43→21:26)
--- NOTE | 2021-12-27 08:35 | Progress Note ---
Subjective Date of service: 12/27/21 Subjective Comment: 12/27/21:The patient was seen this morning. She continues to be disorganized " My is a dentist, I need to go see the dentist." she denies any current suicidal/homicidal ideation and denies hallucinations. 12/26/21: The patient was seen this morning. She reports doing well. She reports not seeing snakes " I honestly don't know what bit me. " she denies any current suicidal/homicidal ideation and denies hallucinations. 12/25/21: The patient was seen this morning tending to her morning hygiene. She continues to present with some paranoia " my brother said I was bit by a snake he saw it in his camera. " The patient states sleep and appetite as good. She denies any current suicidal/homicidal ideation and denies hallucinations. 12/24/21: The patient was seen this morning. She continues to present with delusions and complaining about the snake bite on her shoulder. she reports sleep and appetite as good. She denies any current suicidal/homicidal ideation and denies hallucinations. PAST PSYCHIATRIC HISTORY PAST MEDICAL HISTORY: unknown Family Psychiatric History: unknown SOCIAL HISTORY REVIEW OF SYSTEMS MENTAL STATUS EXAMINATION Assessment and Plan (1) Schizophrenia Treatment Plan Patient admitted for inpatient psychiatric evaluation, medication adjustment and close monitoring The patient's behavior, mood, sleep and appetite will be closely monitored. Patient enrolled in individual and group therapeutic sessions and encouraged to attend. Patient provided with a safe and structured environment. Patient's physical health needs will be addressed by the Hospitalist. Hospitalist Consulted Labs including CBC, CMP, Lipid profile and Hemoglobin A1C levels ordered for baseline reference Social Assessment will be completed and the Handkerchief Presser will work with patient and family to ensure a suitable and safe disposition Medication adjustment will be made as clinically indicated Continue home meds Usual Wellness Sikh/Preservation: - Start Trazodone 50 mg po QHS & 50 mg po QHS PRN between 10 PM & 2 AM for insomnia - Start Melatonin 5 mg po QHS to promote circadian rhythm The patient agreed on the treatment plan, understood the risk, benefit, alternative treatment, potential consequence of no treatment, and gave informed consent. Estimated days: 3 Post hospital care: primary care provider, psychiatric provider Case staffed with Dr. Blake Medications and Allergies Medications and Allergies Allergies Allergy/AdvReac Type Severity Reaction Status Date / Time codeine Allergy Unknown Unverified 12/22/21 15:51 Sulfa (Sulfonamide Allergy Unknown Unverified 12/22/21 15:51 Antibiotics) Home Medications Medication Instructions Recorded Confirmed Last Taken Type Divalproex Dr [DepaKOTE DR] 500 mg PO BID 12/23/21 12/23/21 Unknown History Divalproex ER [Depakote ER] 250 mg PO QHS 12/23/21 12/23/21 Unknown History dilTIAZem [Cardizem] 90 mg PO BID 12/23/21 12/23/21 Unknown History fluPHENAZine decanoate 37.5 mg IM Q14D 12/23/21 12/23/21 Unknown History [fluPHENAZine Decanoate] hydrOXYzine pamoate [Hydroxyzine 50 mg PO Q6H PRN 12/23/21 12/23/21 Unknown History Pamoate] risperiDONE [RisperDAL] 1 mg PO BID 12/23/21 12/23/21 Unknown History traZODone [Desyrel] 50 mg PO QHS 12/23/21 12/23/21 Unknown History Active Meds: Active Medications Diltiazem HCl (Diltiazem 90 Mg Tab) 90 mg PO BID [facility] Last Admin: 12/26/21 22:22 Dose: 90 mg Divalproex Sodium (Divalproex Dr 500 Mg Tab) 500 mg PO BID@0800,1700 [facility] Last Admin: 12/27/21 07:43 Dose: 500 mg Divalproex Sodium (Divalproex Dr 500 Mg Tab) 500 mg PO QHS [facility] Hydroxyzine Pamoate (Hydroxyzine Pamoate 50 Mg Cap) 50 mg PO Q6H PRN PRN Reason: Agitation Melatonin (Melatonin 5 Mg Tab) 5 mg PO QHS PRN PRN Reason: Sleep Risperidone (Risperidone 1 Mg Tab) 2 mg PO QHS [facility] Last Admin: 12/26/21 22:21 Dose: 2 mg Risperidone (Risperidone 1 Mg Tab) 1 mg PO DAILY [facility] Trazodone HCl (Trazodone 50 Mg Tab) 50 mg PO QHS [facility] Last Admin: 12/26/21 22:24 Dose: 50 mg Results - Results Labs/Vitals: Laboratory Last Values WBC 8.4 K/mm3 (4.5-11.0) 12/22/21 23:42 RBC 3.37 M/mm3 (3.65-5.03) L 12/22/21 23:42 Hgb 10.3 gm/dl (10.1-14.3) 12/22/21 23:42 Hct 31.7 % (30.3-42.9) 12/22/21 23:42 MCV 94 fl (79-97) 12/22/21 23:42 MCH 31 pg (28-32) 12/22/21 23:42 MCHC 32 % (30-34) 12/22/21 23:42 RDW 14.0 % (13.2-15.2) 12/22/21 23:42 Plt Count 286 K/mm3 (140-440) 12/22/21 23:42 Lymph % (Auto) 42.9 % (13.4-35.0) H 12/22/21 23:42 [place] % (Auto) 8.4 % (0.0-7.3) H 12/22/21 23:42 Eos % (Auto) 1.1 % (0.0-4.3) 12/22/21 23:42 Baso % (Auto) 0.6 % (0.0-1.8) 12/22/21 23:42 Lymph # (Auto) 3.6 K/mm3 (1.2-5.4) 12/22/21 23:42 [place] # (Auto) 0.7 K/mm3 (0.0-0.8) 12/22/21 23:42 Eos # (Auto) 0.1 K/mm3 (0.0-0.4) 12/22/21 23:42 Baso # (Auto) 0.0 K/mm3 (0.0-0.1) 12/22/21 23:42 Seg Neutrophils % 47.0 % (40.0-70.0) 12/22/21 23:42 Seg Neutrophils # 3.9 K/mm3 (1.8-7.7) 12/22/21 23:42 Sodium 136 mmol/L (137-145) L 12/22/21 23:42 Potassium 4.4 mmol/L (3.6-5.0) 12/22/21 23:42 Chloride 100.7 mmol/L (98-107) 12/22/21 23:42 Carbon Dioxide 21 mmol/L (22-30) L 12/22/21 23:42 Anion Gap 19 mmol/L 12/22/21 23:42 BUN 29 mg/dL (7-17) H 12/22/21 23:42 Creatinine 1.6 mg/dL (0.6-1.2) H 12/22/21 23:42 Estimated GFR 40 ml/min 12/22/21 23:42 BUN/Creatinine Ratio 18 % 12/22/21 23:42 Glucose 147 mg/dL (65-100) H 12/22/21 23:42 Hemoglobin A1c 5.5 % (4-6) 12/22/21 23:42 Calcium 9.4 mg/dL (8.4-10.2) 12/22/21 23:42 Total Bilirubin < 0.20 mg/dL (0.1-1.2) 12/22/21 23:42 AST 23 units/L (5-40) 12/22/21 23:42 ALT 16 units/L (7-56) 12/22/21 23:42 Alkaline Phosphatase 73 units/L (35-129) 12/22/21 23:42 Total Protein 7.1 g/dL (6.3-8.2) 12/22/21 23:42 Albumin 3.8 g/dL (3.9-5) L 12/22/21 23:42 Albumin/Globulin Ratio 1.2 % 12/22/21 23:42 Triglycerides 83 mg/dL (2-149) 12/22/21 23:42 Cholesterol 193 mg/dL (50-199) 12/22/21 23:42 LDL Cholesterol Direct 121 mg/dL (50-130) 12/22/21 23:42 HDL Cholesterol 63 mg/dL (40-59) H 12/22/21 23:42 Cholesterol/HDL Ratio 3.06 % 12/22/21 23:42 TSH 1.280 mlU/mL (0.270-4.200) 12/22/21 23:42 Last Vital Signs Temp 98.7 F 12/27/21 07:15 Pulse 78 12/27/21 07:15 Resp 17 12/27/21 07:15 BP 137/74 12/27/21 07:15 Pulse Ox 97 12/27/21 07:15
[2021-12-27] MEDS: risperiDONE 1 MG TAB PO SCH ×2 (09:07→21:26)
--- NOTE | 2021-12-27 21:08 | Progress Note ---
Assessment and Plan - Patient Problems (1) Hypertension Current Visit: Yes Status: Acute Qualifiers: Hypertension type: primary hypertension Qualified Code(s): I10 - Essential (primary) hypertension Plan to address problem: Monitor blood pressure every shift, continue medical management. (2) Obesity hypoventilation syndrome Current Visit: Yes Status: Acute Plan to address problem: Balanced diet, increase physical activity discharge, outpatient pulmonary follow-up for sleep study. (3) Schizophrenia Current Visit: Yes Status: Acute Plan to address problem: Continue medical management (4) Advance care planning Current Visit: Yes Status: Acute Plan to address problem: Disease education conducted, care plan discussed, diagnoses discussed, prognosis discussed, patient is full code, +30 minutes. History Interval history: 56 YO Female with HTN, Obesity, Schizophrenia admitted to [facility] psych unit for psychiatric stabilization. Consult placed by Dr. Padilla for medical management. Patient seen and evaluated in the recreation room. No reported nursing events. Patient is at baseline level of cognition and function. Patient denies pain. Hospitalist Physical - Constitutional Vitals: Temp Pulse Resp BP Pulse Ox 98.7 F 78 17 137/74 97 12/27/21 07:15 12/27/21 07:15 12/27/21 07:15 12/27/21 07:15 12/27/21 07:15 General appearance: Present: obese - EENT Eyes: Present: PERRL, EOM intact ENT: hearing intact - Neck Neck: Present: supple - Respiratory Respiratory effort: normal Respiratory: bilateral: CTA - Cardiovascular Rhythm: regular Heart Sounds: Present: S1 & S2 - Extremities Extremities: no ischemia Peripheral Pulses: within normal limits - Abdominal General gastrointestinal: soft, non-tender, non-distended - Integumentary Integumentary: Present: clear, dry - Psychiatric Psychiatric: cooperative - Neurologic Neurologic: CNII-XII intact Results - Labs CBC & Chem 7: 12/22/21 23:42 12/22/21 23:42 Labs: Laboratory Last Values WBC 8.4 K/mm3 (4.5-11.0) 12/22/21 23:42 RBC 3.37 M/mm3 (3.65-5.03) L 12/22/21 23:42 Hgb 10.3 gm/dl (10.1-14.3) 12/22/21 23:42 Hct 31.7 % (30.3-42.9) 12/22/21 23:42 MCV 94 fl (79-97) 12/22/21 23:42 MCH 31 pg (28-32) 12/22/21 23:42 MCHC 32 % (30-34) 12/22/21 23:42 RDW 14.0 % (13.2-15.2) 12/22/21 23:42 Plt Count 286 K/mm3 (140-440) 12/22/21 23:42 Lymph % (Auto) 42.9 % (13.4-35.0) H 12/22/21 23:42 [place] % (Auto) 8.4 % (0.0-7.3) H 12/22/21 23:42 Eos % (Auto) 1.1 % (0.0-4.3) 12/22/21 23:42 Baso % (Auto) 0.6 % (0.0-1.8) 12/22/21 23:42 Lymph # (Auto) 3.6 K/mm3 (1.2-5.4) 12/22/21 23:42 [place] # (Auto) 0.7 K/mm3 (0.0-0.8) 12/22/21 23:42 Eos # (Auto) 0.1 K/mm3 (0.0-0.4) 12/22/21 23:42 Baso # (Auto) 0.0 K/mm3 (0.0-0.1) 12/22/21 23:42 Seg Neutrophils % 47.0 % (40.0-70.0) 12/22/21 23:42 Seg Neutrophils # 3.9 K/mm3 (1.8-7.7) 12/22/21 23:42 Sodium 136 mmol/L (137-145) L 12/22/21 23:42 Potassium 4.4 mmol/L (3.6-5.0) 12/22/21 23:42 Chloride 100.7 mmol/L (98-107) 12/22/21 23:42 Carbon Dioxide 21 mmol/L (22-30) L 12/22/21 23:42 Anion Gap 19 mmol/L 12/22/21 23:42 BUN 29 mg/dL (7-17) H 12/22/21 23:42 Creatinine 1.6 mg/dL (0.6-1.2) H 12/22/21 23:42 Estimated GFR 40 ml/min 12/22/21 23:42 BUN/Creatinine Ratio 18 % 12/22/21 23:42 Glucose 147 mg/dL (65-100) H 12/22/21 23:42 Hemoglobin A1c 5.5 % (4-6) 12/22/21 23:42 Calcium 9.4 mg/dL (8.4-10.2) 12/22/21 23:42 Total Bilirubin < 0.20 mg/dL (0.1-1.2) 12/22/21 23:42 AST 23 units/L (5-40) 12/22/21 23:42 ALT 16 units/L (7-56) 12/22/21 23:42 Alkaline Phosphatase 73 units/L (35-129) 12/22/21 23:42 Total Protein 7.1 g/dL (6.3-8.2) 12/22/21 23:42 Albumin 3.8 g/dL (3.9-5) L 12/22/21 23:42 Albumin/Globulin Ratio 1.2 % 12/22/21 23:42 Triglycerides 83 mg/dL (2-149) 12/22/21 23:42 Cholesterol 193 mg/dL (50-199) 12/22/21 23:42 LDL Cholesterol Direct 121 mg/dL (50-130) 12/22/21 23:42 HDL Cholesterol 63 mg/dL (40-59) H 12/22/21 23:42 Cholesterol/HDL Ratio 3.06 % 12/22/21 23:42 TSH 1.280 mlU/mL (0.270-4.200) 12/22/21 23:42 Leon/IV: Voiding Method Toilet Active Medications - Current Medications Current Medications: Generic Name Dose Route Start Last Admin Trade Name Freq PRN Reason Stop Dose Admin Diltiazem HCl 90 mg 12/23/21 10:00 12/27/21 09:06 Diltiazem 90 Mg Tab PO 90 mg BID [facility] Administration Divalproex Sodium 500 mg 12/25/21 08:00 12/27/21 16:[address] 500 Mg Tab PO 500 mg BID@0800,1700 [facility] Administration Divalproex Sodium 500 mg 12/27/21 22:[address] 500 Mg Tab PO QHS [facility] Hydroxyzine Pamoate 50 mg 12/23/21 08:54 Hydroxyzine Pamoate 50 Mg Cap PO Q6H PRN Agitation Melatonin 5 mg 12/22/21 21:34 Melatonin 5 Mg Tab PO QHS PRN Sleep Risperidone 2 mg 12/26/21 22:00 12/26/21 22:21 Risperidone 1 Mg Tab PO 2 mg QHS [facility] Administration Risperidone 1 mg 12/27/21 10:00 12/27/21 09:07 Risperidone 1 Mg Tab PO 1 mg DAILY [facility] Administration Trazodone HCl 50 mg 12/22/21 22:00 12/26/21 22:24 Trazodone 50 Mg Tab PO 50 mg QHS [facility] Administration
[2021-12-27] MEDS: traZODone 50 MG TAB PO SCH (21:25)
[2021-12-28] MEDS: risperiDONE 1 MG TAB PO SCH ×3 (08:59→21:28)
[2021-12-28] MEDS: DIVALPROEX DR 500 MG TAB PO SCH ×3 (08:59→21:28)
--- NOTE | 2021-12-28 09:58 | Progress Note ---
Subjective Date of service: 12/28/21 Subjective Comment: 12/28/21: The patient was seen this morning. She is cheerful and reports doing better. She continues to present with some confusion. She denies any current suicidal/homicidal ideation and denies hallucinations. No aggressive behavior reported. 12/27/21:The patient was seen this morning. She continues to be disorganized " My is a dentist, I need to go see the dentist." she denies any current suicidal/homicidal ideation and denies hallucinations. 12/26/21: The patient was seen this morning. She reports doing well. She reports not seeing snakes " I honestly don't know what bit me. " she denies any current suicidal/homicidal ideation and denies hallucinations. 12/25/21: The patient was seen this morning tending to her morning hygiene. She continues to present with some paranoia " my brother said I was bit by a snake he saw it in his camera. " The patient states sleep and appetite as good. She denies any current suicidal/homicidal ideation and denies hallucinations. 12/24/21: The patient was seen this morning. She continues to present with delusions and complaining about the snake bite on her shoulder. she reports sleep and appetite as good. She denies any current suicidal/homicidal ideation and denies hallucinations. PAST PSYCHIATRIC HISTORY PAST MEDICAL HISTORY: unknown Family Psychiatric History: unknown SOCIAL HISTORY REVIEW OF SYSTEMS MENTAL STATUS EXAMINATION Assessment and Plan (1) Schizophrenia Treatment Plan Patient admitted for inpatient psychiatric evaluation, medication adjustment and close monitoring The patient's behavior, mood, sleep and appetite will be closely monitored. Patient enrolled in individual and group therapeutic sessions and encouraged to attend. Patient provided with a safe and structured environment. Patient's physical health needs will be addressed by the Hospitalist. Hospitalist Consulted Labs including CBC, CMP, Lipid profile and Hemoglobin A1C levels ordered for baseline reference Social Assessment will be completed and the Carton Repairer will work with patient and family to ensure a suitable and safe disposition Medication adjustment will be made as clinically indicated Continue home meds Usual Wellness [place]/Preservation: - Start Trazodone 50 mg po QHS & 50 mg po QHS PRN between 10 PM & 2 AM for insomnia - Start Melatonin 5 mg po QHS to promote circadian rhythm The patient agreed on the treatment plan, understood the risk, benefit, alternative treatment, potential consequence of no treatment, and gave informed consent. Estimated days: 3 Post hospital care: primary care provider, psychiatric provider Case staffed with Dr. Blake Medications and Allergies Medications and Allergies Allergies Allergy/AdvReac Type Severity Reaction Status Date / Time codeine Allergy Unknown Unverified 12/22/21 15:51 Sulfa (Sulfonamide Allergy Unknown Unverified 12/22/21 15:51 Antibiotics) Home Medications Medication Instructions Recorded Confirmed Last Taken Type Divalproex Dr [DepaKOTE DR] 500 mg PO BID 12/23/21 12/23/21 Unknown History Divalproex ER [Depakote ER] 250 mg PO QHS 12/23/21 12/23/21 Unknown History dilTIAZem [Cardizem] 90 mg PO BID 12/23/21 12/23/21 Unknown History fluPHENAZine decanoate 37.5 mg IM Q14D 12/23/21 12/23/21 Unknown History [fluPHENAZine Decanoate] hydrOXYzine pamoate [Hydroxyzine 50 mg PO Q6H PRN 12/23/21 12/23/21 Unknown History Pamoate] risperiDONE [RisperDAL] 1 mg PO BID 12/23/21 12/23/21 Unknown History traZODone [Desyrel] 50 mg PO QHS 12/23/21 12/23/21 Unknown History Active Meds: Active Medications Diltiazem HCl (Diltiazem 90 Mg Tab) 90 mg PO BID [facility] Last Admin: 12/28/21 08:58 Dose: 90 mg Divalproex Sodium (Divalproex Dr 500 Mg Tab) 500 mg PO BID@0800,1700 [facility] Last Admin: 12/28/21 08:59 Dose: 500 mg Divalproex Sodium (Divalproex Dr 500 Mg Tab) 500 mg PO QHS [facility] Last Admin: 12/27/21 21:26 Dose: 500 mg Hydroxyzine Pamoate (Hydroxyzine Pamoate 50 Mg Cap) 50 mg PO Q6H PRN PRN Reason: Agitation Melatonin (Melatonin 5 Mg Tab) 5 mg PO QHS PRN PRN Reason: Sleep Risperidone (Risperidone 1 Mg Tab) 2 mg PO QHS [facility] Last Admin: 12/27/21 21:26 Dose: 2 mg Risperidone (Risperidone 1 Mg Tab) 1 mg PO DAILY [facility] Last Admin: 12/28/21 08:59 Dose: 1 mg Trazodone HCl (Trazodone 50 Mg Tab) 50 mg PO QHS [facility] Last Admin: 12/27/21 21:25 Dose: 50 mg Results - Results Labs/Vitals: Laboratory Last Values WBC 8.4 K/mm3 (4.5-11.0) 12/22/21 23:42 RBC 3.37 M/mm3 (3.65-5.03) L 12/22/21 23:42 Hgb 10.3 gm/dl (10.1-14.3) 12/22/21 23:42 Hct 31.7 % (30.3-42.9) 12/22/21 23:42 MCV 94 fl (79-97) 12/22/21 23:42 MCH 31 pg (28-32) 12/22/21 23:42 MCHC 32 % (30-34) 12/22/21 23:42 RDW 14.0 % (13.2-15.2) 12/22/21 23:42 Plt Count 286 K/mm3 (140-440) 12/22/21 23:42 Lymph % (Auto) 42.9 % (13.4-35.0) H 12/22/21 23:42 [place] % (Auto) 8.4 % (0.0-7.3) H 12/22/21 23:42 Eos % (Auto) 1.1 % (0.0-4.3) 12/22/21 23:42 Baso % (Auto) 0.6 % (0.0-1.8) 12/22/21 23:42 Lymph # (Auto) 3.6 K/mm3 (1.2-5.4) 12/22/21 23:42 [place] # (Auto) 0.7 K/mm3 (0.0-0.8) 12/22/21 23:42 Eos # (Auto) 0.1 K/mm3 (0.0-0.4) 12/22/21 23:42 Baso # (Auto) 0.0 K/mm3 (0.0-0.1) 12/22/21 23:42 Seg Neutrophils % 47.0 % (40.0-70.0) 12/22/21 23:42 Seg Neutrophils # 3.9 K/mm3 (1.8-7.7) 12/22/21 23:42 Sodium 136 mmol/L (137-145) L 12/22/21 23:42 Potassium 4.4 mmol/L (3.6-5.0) 12/22/21 23:42 Chloride 100.7 mmol/L (98-107) 12/22/21 23:42 Carbon Dioxide 21 mmol/L (22-30) L 12/22/21 23:42 Anion Gap 19 mmol/L 12/22/21 23:42 BUN 29 mg/dL (7-17) H 12/22/21 23:42 Creatinine 1.6 mg/dL (0.6-1.2) H 12/22/21 23:42 Estimated GFR 40 ml/min 12/22/21 23:42 BUN/Creatinine Ratio 18 % 12/22/21 23:42 Glucose 147 mg/dL (65-100) H 12/22/21 23:42 Hemoglobin A1c 5.5 % (4-6) 12/22/21 23:42 Calcium 9.4 mg/dL (8.4-10.2) 12/22/21 23:42 Total Bilirubin < 0.20 mg/dL (0.1-1.2) 12/22/21 23:42 AST 23 units/L (5-40) 12/22/21 23:42 ALT 16 units/L (7-56) 12/22/21 23:42 Alkaline Phosphatase 73 units/L (35-129) 12/22/21 23:42 Total Protein 7.1 g/dL (6.3-8.2) 12/22/21 23:42 Albumin 3.8 g/dL (3.9-5) L 12/22/21 23:42 Albumin/Globulin Ratio 1.2 % 12/22/21 23:42 Triglycerides 83 mg/dL (2-149) 12/22/21 23:42 Cholesterol 193 mg/dL (50-199) 12/22/21 23:42 LDL Cholesterol Direct 121 mg/dL (50-130) 12/22/21 23:42 HDL Cholesterol 63 mg/dL (40-59) H 12/22/21 23:42 Cholesterol/HDL Ratio 3.06 % 12/22/21 23:42 TSH 1.280 mlU/mL (0.270-4.200) 12/22/21 23:42 Last Vital Signs Temp 97.7 F 12/28/21 08:54 Pulse 73 12/28/21 08:58 Resp 16 12/28/21 08:54 BP 111/69 12/28/21 08:58 Pulse Ox 99 12/28/21 08:54
--- NOTE | 2021-12-28 10:02 | Discharge Summary ---
Providers - Providers Date of Admission: 12/22/21 23:00 Date of discharge: 12/29/21 Attending physician: LEYDI HINOJOSA MD 12/22/21 21:24 Consult to Physician [CONS] Routine Comment: Consulting Provider: STEFANY SAINZ Physician Instructions: Please manage existing conditions Reason For Exam: New admission Primary care physician: [employer] SET UP OPERATOR Hospitalization Reason for admission: Delusions Admitting Diagnosis: F20.9 - SCHIZOPHRENIA, UNSPECIFIED Condition: Stable Hospital course: The patient was provided inpatient psychiatric treatment with safe and supportive environment, group/individual therapy, psychiatric medication, medication adjustment, adverse effect monitor, medical evaluation, medical treatment, social service assessment, social support meeting, placement assessment and psycho-education. The patients mood, cognition, behavior, motivation, compliance to treatment and appreciation on family/social support are improved and stabilized. At the time of discharge, the patient had no suicidal ideas, no homicidal ideas, no aggressive thoughts, no endangering behavior and no debilitating adverse effects. The patient agreed on the treatment plan, understood the risk, benefit, alternative treatment, potential consequence of no treatment, and gave informed consent. 12/28/21: The patient was seen this morning. She is cheerful and reports doing better. She continues to present with some confusion. She denies any current suicidal/homicidal ideation and denies hallucinations. No aggressive behavior reported. 12/27/21:The patient was seen this morning. She continues to be disorganized " My is a dentist, I need to go see the dentist." she denies any current suicidal/homicidal ideation and denies hallucinations. 12/26/21: The patient was seen this morning. She reports doing well. She reports not seeing snakes " I honestly don't know what bit me. " she denies any current suicidal/homicidal ideation and denies hallucinations. 12/25/21: The patient was seen this morning tending to her morning hygiene. She continues to present with some paranoia " my brother said I was bit by a snake he saw it in his camera. " The patient states sleep and appetite as good. She denies any current suicidal/homicidal ideation and denies hallucinations. 12/24/21: The patient was seen this morning. She continues to present with delusions and complaining about the snake bite on her shoulder. she reports sleep and appetite as good. She denies any current suicidal/homicidal ideation and denies hallucinations. Disposition: 30 STILL A PATIENT Allergies/Adverse Reactions: Allergies codeine Allergy (Unverified 12/22/21 15:51) Unknown Sulfa (Sulfonamide Antibiotics) Allergy (Unverified 12/22/21 15:51) Unknown Vital Signs: Last Vital Signs Temp 97.7 F 12/28/21 08:54 Pulse 73 12/28/21 08:58 Resp 16 12/28/21 08:54 BP 111/69 12/28/21 08:58 Pulse Ox 99 12/28/21 08:54 Last Lab: Laboratory Last Values WBC 8.4 K/mm3 (4.5-11.0) 12/22/21 23:42 RBC 3.37 M/mm3 (3.65-5.03) L 12/22/21 23:42 Hgb 10.3 gm/dl (10.1-14.3) 12/22/21 23:42 Hct 31.7 % (30.3-42.9) 12/22/21 23:42 MCV 94 fl (79-97) 12/22/21 23:42 MCH 31 pg (28-32) 12/22/21 23:42 MCHC 32 % (30-34) 12/22/21 23:42 RDW 14.0 % (13.2-15.2) 12/22/21 23:42 Plt Count 286 K/mm3 (140-440) 12/22/21 23:42 Lymph % (Auto) 42.9 % (13.4-35.0) H 12/22/21 23:42 [place] % (Auto) 8.4 % (0.0-7.3) H 12/22/21 23:42 Eos % (Auto) 1.1 % (0.0-4.3) 12/22/21 23:42 Baso % (Auto) 0.6 % (0.0-1.8) 12/22/21 23:42 Lymph # (Auto) 3.6 K/mm3 (1.2-5.4) 12/22/21 23:42 [place] # (Auto) 0.7 K/mm3 (0.0-0.8) 12/22/21 23:42 Eos # (Auto) 0.1 K/mm3 (0.0-0.4) 12/22/21 23:42 Baso # (Auto) 0.0 K/mm3 (0.0-0.1) 12/22/21 23:42 Seg Neutrophils % 47.0 % (40.0-70.0) 12/22/21 23:42 Seg Neutrophils # 3.9 K/mm3 (1.8-7.7) 12/22/21 23:42 Sodium 136 mmol/L (137-145) L 12/22/21 23:42 Potassium 4.4 mmol/L (3.6-5.0) 12/22/21 23:42 Chloride 100.7 mmol/L (98-107) 12/22/21 23:42 Carbon Dioxide 21 mmol/L (22-30) L 12/22/21 23:42 Anion Gap 19 mmol/L 12/22/21 23:42 BUN 29 mg/dL (7-17) H 12/22/21 23:42 Creatinine 1.6 mg/dL (0.6-1.2) H 12/22/21 23:42 Estimated GFR 40 ml/min 12/22/21 23:42 BUN/Creatinine Ratio 18 % 12/22/21 23:42 Glucose 147 mg/dL (65-100) H 12/22/21 23:42 Hemoglobin A1c 5.5 % (4-6) 12/22/21 23:42 Calcium 9.4 mg/dL (8.4-10.2) 12/22/21 23:42 Total Bilirubin < 0.20 mg/dL (0.1-1.2) 12/22/21 23:42 AST 23 units/L (5-40) 12/22/21 23:42 ALT 16 units/L (7-56) 12/22/21 23:42 Alkaline Phosphatase 73 units/L (35-129) 12/22/21 23:42 Total Protein 7.1 g/dL (6.3-8.2) 12/22/21 23:42 Albumin 3.8 g/dL (3.9-5) L 12/22/21 23:42 Albumin/Globulin Ratio 1.2 % 12/22/21 23:42 Triglycerides 83 mg/dL (2-149) 12/22/21 23:42 Cholesterol 193 mg/dL (50-199) 12/22/21 23:42 LDL Cholesterol Direct 121 mg/dL (50-130) 12/22/21 23:42 HDL Cholesterol 63 mg/dL (40-59) H 12/22/21 23:42 Cholesterol/HDL Ratio 3.06 % 12/22/21 23:42 TSH 1.280 mlU/mL (0.270-4.200) 12/22/21 23:42 Core Measure Documentation - Palliative Care Palliative Care/ Comfort Measures: Not Applicable - Core Measures Any of the following diagnoses?: none - VTE Discharge Requirements Deep Vein Thrombosis/Pulmonary Embolism Present on Admission: No Exam - Constitutional Vitals: Temp Pulse Resp BP Pulse Ox 97.7 F 73 16 111/69 99 12/28/21 08:54 12/28/21 08:58 12/28/21 08:54 12/28/21 08:58 12/28/21 08:54 Plan Care Plan Goals: Maintain good and stable mental health. Plan of Treatment: The patient should be compliant with medications, not to use drugs and not to drink alcohol.The patient understands that if suicidal ideas, homicidal ideas, or any endangering thoughts/behavior arise, they should immediately seek for emergent assistance including but not limited to crisis hot line and emergency room. Follow up with outpatient Psychiatrist and PCP within 7 - 14 days of discharge. Follow up with: PRIMARY CARE, [Primary Care Provider] - 7 Days Prescriptions: Divalproex Dr Paulo Meyer] 500 mg PO QHS 30 Days #30 tablet traZODone [Desyrel] 50 mg PO QHS 30 Days #30 tablet risperiDONE [RisperDAL] 2 mg PO QHS 30 Days #[address] Paulo Meyer] 500 mg PO BID@0800,1700 30 Days #60 tablet risperiDONE [RisperDAL] 1 mg PO DAILY 30 Days #30 tablet
[2021-12-28] MEDS: traZODone 50 MG TAB PO SCH (21:28)
[2021-12-28 21:29] VITALS: BP 145/88
== END 2021-12-29 07:15 | disposition home or self-care (01) | DRG 885 ==
LOC: UNDOADMIN 15:49 → 3A 15:49 → 5A 23:00
PROVIDERS: ADMIT Psychiatry & Neurology Psychiatry; ATTEND Psychiatry & Neurology Psychiatry
DX: F20.9 Schizophrenia, unspecified (principal); E66.2 Morbid (severe) obesity with alveolar hypoventilation; I10 Essential (primary) hypertension; Z83.3 Family history of diabetes mellitus; Z82.49 Family history of ischemic heart disease and other diseases of the circulatory system; Z88.5 Allergy status to narcotic agent; Z88.2 Allergy status to sulfonamides; Z88.1 Allergy status to other antibiotic agents; Z68.36 Body mass index [BMI] 36.0-36.9, adult
CPT/HCPCS: 36415; 80053; 80061; 83036; 84443; 85025; G0378